=== PATIENT | female | born 1945 | race Caucasian/White ===

== ENCOUNTER 2019-05-10 15:22 | Inpatient (IN) ==
[2019-05-10] MEDS ORDERED: ONDANSETRON 4 MG/2 ML VIAL IV STA (16:07)
[2019-05-10] MEDS ORDERED: fentaNYL 100 MCG/2 ML VIAL IV STA (16:07)
[2019-05-10 16:24] LABS: Basophils # 0.1 10*3/uL (0.0-0.2); Basophils % 0.4 % (0.0-0.8); Hematocrit 34.1 VOL% (35.7-47.0); Hemoglobin 11.3 GM/DL (12.0-16.0); Immature Granulocytes % 0.9 %; Immature Granulocytes Absolute 0.21 #; Lymphocytes # 2.1 10*3/uL (1.4-4.0); Lymphocytes % 9.3 % (21.3-54.2); Mean Corpuscular HGB Conc 33.1 GM/DL (32-36); Mean Corpuscular Volume 98.3 FL (87-102); Mean Platelet Volume 9.4 FL (9.6-12.0); Monocytes % 5.1 % (1.7-12.7); Neutrophils % 84.3 % (38.7-73.9); Platelet Count 197 T/CUMM (130-400); Red Blood Count 3.47 MC/CUMM (3.8-5.5); Red Cell Distribution Width 13.6 % (9.3-17.3); White Blood Count 23.1 T/CUMM (4-12)
[2019-05-10 16:30] LABS: Apearance,Urine CLEAR (Clear); Bacteria,Urine Occasional /HPF (Few); Bilirubin,Urine Negative (Negative); Blood, Urine Small mg/dL (Negative); Glucose,Urine (UA) 150 mg/dL (Negative); Ketones,Urine Negative (Negative); Mucus,Urine Occasional /LPF (Occasional); Nitrite,Urine Negative (Negative); Protein,Urine 30 MG/DL; RBC,Urine 1 /HPF (0-4); Squamous Epithelial Cell,Urine Occasional /HPF (0-10); Urine Color Yellow (Yellow); Urine Specific Gravity 1.013 (1.001-1.035); Urine Urobilinogen < 2.0 EU/DL (0.2-1.0); WBC,Urine 28 /HPF (0-6)
[2019-05-10] MEDS ORDERED: guaiFENesin/DM ER 600-30 MG TABLET PO PRN (16:31)
[2019-05-10] MEDS ORDERED: diphenhydrAMINE CAP 25 MG CAPSULE PO PRN (16:31)
[2019-05-10] MEDS ORDERED: GLUCAGON 1 MG VIAL IM PRN (16:31)
[2019-05-10] MEDS ORDERED: PROMETHAZINE 25 MG/1 ML VIAL IM PRN (16:31)
[2019-05-10] MEDS ORDERED: ONDANSETRON 4 MG/2 ML VIAL IV PRN (16:31)
[2019-05-10] MEDS ORDERED: DEXTROSE 50% 25 GM/50 ML VIAL IV PRN (16:31)
[2019-05-10] MEDS ORDERED: ACETAMINOPHEN 325 MG TABLET PO PRN (16:31)
[2019-05-10 16:35] LABS: Partial Thromboplastin Time 30.5 SECS (20.8-36.0)
[2019-05-10 16:38] LABS: Calcium 8.7 MG/DL (8.5-10.1); Osmolality,Calculated 290.3 MOS/KG (273-304)
[2019-05-10] MEDS ORDERED: AMPICILLIN/SULBACTAM 3,000 MG in SODIUM CHLORIDE 0.9% 100 ML IV STA (16:39)
[2019-05-10 16:43] LABS: Troponin I < 0.015 NG/ML (0.00-0.045)
[2019-05-10 16:48] LABS: Band Neutrophils 2 % (0-10); Lymphocytes 10 % (20-55); Platelet Estimate Normal; Segmented Neutrophils 84 % (50-85); Total Cells Counted 100
[2019-05-10] MEDS ORDERED: MORPHINE 4 MG/1 ML VIAL IV PRN (17:35)
[2019-05-10] MEDS: SODIUM CHLORIDE 0.45% 1,000 ML IV SCH (18:19)
[2019-05-10] MEDS: LEVOFLOXACIN INJ 500 MG in PREMIX 1 EACH IV SCH (20:54)
[2019-05-10] MEDS: INSULIN REGULAR 100 UNIT/ML SUBCUT SCH (20:54)
[2019-05-11 05:20] LABS: Basophils # 0.1 10*3/uL (0.0-0.2); Basophils % 0.3 % (0.0-0.8); Hematocrit 33.3 VOL% (35.7-47.0); Immature Granulocytes % 2.5 %; Immature Granulocytes Absolute 0.58 #; Lymphocytes # 1.4 10*3/uL (1.4-4.0); Mean Corpuscular Volume 99.7 FL (87-102); Mean Platelet Volume 9.7 FL (9.6-12.0); Monocytes % 3.3 % (1.7-12.7); Neutrophils % 87.9 % (38.7-73.9); Platelet Count 179 T/CUMM (130-400); Red Blood Count 3.34 MC/CUMM (3.8-5.5); Red Cell Distribution Width 13.7 % (9.3-17.3); White Blood Count 23.3 T/CUMM (4-12)
[2019-05-11 05:50] LABS: Calcium 9.1 MG/DL (8.5-10.1); Osmolality,Calculated 297.1 MOS/KG (273-304); Risk Ratio 2.77; Thyroid Stimulating Hormone 0.522 uIU/ml (0.358-3.74); Total Protein 7.1 G/DL (6.4-8.3); VLDL CHOLESTEROL 38.2 MG/DL
[2019-05-11 05:52] LABS: Band Neutrophils 5 % (0-10); Lymphocytes 7 % (20-55); Segmented Neutrophils 84 % (50-85); Total Cells Counted 100
[2019-05-11 05:53] LABS: Platelet Estimate Normal
[2019-05-11] MEDS ORDERED: FAMOTIDINE 20 MG TABLET PO ONE (06:00)
[2019-05-11] MEDS ORDERED: ceFAZolin 1,000 MG in SYRINGE 1 EACH IV ONE (06:00)
[2019-05-11] MEDS ORDERED: PROPOFOL 0 MG/0 ML BOTTLE IV ONE (06:02)
[2019-05-11] MEDS ORDERED: MIDAZOLAM 2 MG/2 ML VIAL ONE (06:02)
[2019-05-11] MEDS ORDERED: KETAMINE 500 MG/10 ML VIAL ONE (06:02)
[2019-05-11] MEDS ORDERED: BUPIVACAINE SPINAL 0.75% 2 ML AMP SPINAL ONE (06:02)
[2019-05-11] MEDS ORDERED: PHENYLEPHRINE DRIP 20 MG/250 ML PREMIX IV ONE (06:02)
[2019-05-11] MEDS ORDERED: ALBUTEROL/IPRATROPIUM 3 ML NEB RESP TX PRN (06:29)
[2019-05-11] MEDS ORDERED: BUPIVACAINE 0.5% 50 ML VIAL ONE (07:05)
[2019-05-11] MEDS ORDERED: DEXAMETHASONE 4 MG/1 ML VIAL ONE (07:06)
[2019-05-11] MEDS ORDERED: EPINEPHrine 1 MG/ML VIAL ONE (07:06)
[2019-05-11] MEDS: SODIUM CHLORIDE 0.45% 1,000 ML IV SCH ×2 (07:19→13:25)
[2019-05-11] MEDS: ENALAPRIL 10 MG TABLET PO SCH ×2 (07:20→09:00)
[2019-05-11] MEDS: INSULIN REGULAR 100 UNIT/ML SUBCUT SCH ×4 (07:24→20:49)
[2019-05-11] MEDS: AMPICILLIN/SULBACTAM 3,000 MG in SODIUM CHLORIDE 0.9% 100 ML IV SCH ×3 (07:30→23:52)
[2019-05-11] MEDS ORDERED: MAGNESIUM HYDROXIDE SUSP 30 ML UDCUP PO PRN (09:05)
[2019-05-11] MEDS: FENOFIBRATE 145 MG TABLET PO SCH (11:39)
[2019-05-11] MEDS: ESCITALOPRAM 10 MG TABLET PO SCH (11:39)
[2019-05-11] MEDS: GABAPENTIN 300 MG CAPSULE PO SCH (11:39)
[2019-05-11] MEDS ORDERED: ALBUTEROL 2.5 MG/3 ML NEB RESP TX PRN (12:44)
[2019-05-11] MEDS ORDERED: DEXTROSE 50% 25 GM/50 ML VIAL IV PRN (17:16)
[2019-05-11] MEDS ORDERED: GLUCAGON 1 MG VIAL IM PRN (17:16)
[2019-05-11] MEDS ORDERED: ALOGLIPTIN 25 MG PO SCH (18:00)
[2019-05-11] MEDS: LEVOFLOXACIN INJ 500 MG in PREMIX 1 EACH IV SCH (20:49)
[2019-05-11] MEDS: DOCUSATE SODIUM 100 MG CAPSULE PO SCH (20:49)
[2019-05-12] MEDS ORDERED: FONDAPARINUX 2.5 MG/0.5 ML SYRINGE SUBCUT SCH (03:07)
[2019-05-12] MEDS: SODIUM CHLORIDE 0.45% 1,000 ML IV SCH ×3 (03:49→12:32)
[2019-05-12 05:17] LABS: Basophils % 0.2 % (0.0-0.8); Eosinophils % 0.1 % (0.00-10.9); Hematocrit 30.7 VOL% (35.7-47.0); Hemoglobin 10.1 GM/DL (12.0-16.0); Immature Granulocytes % 1.7 %; Immature Granulocytes Absolute 0.25 #; Lymphocytes # 1.1 10*3/uL (1.4-4.0); Lymphocytes % 7.1 % (21.3-54.2); Mean Corpuscular HGB Conc 32.9 GM/DL (32-36); Mean Corpuscular Volume 99.7 FL (87-102); Mean Platelet Volume 10.2 FL (9.6-12.0); Monocytes % 3.6 % (1.7-12.7); Neutrophils % 87.3 % (38.7-73.9); Platelet Count 153 T/CUMM (130-400); Red Blood Count 3.08 MC/CUMM (3.8-5.5); Red Cell Distribution Width 13.4 % (9.3-17.3); White Blood Count 15.1 T/CUMM (4-12)
[2019-05-12 05:43] LABS: Hypochromasia Slight; Macrocytosis Slight
[2019-05-12 05:44] LABS: Platelet Estimate Adequate
[2019-05-12 05:50] LABS: Albumin 2.4 G/DL (3.4-5.0); Bilirubin,Total 0.5 MG/DL (0.2-1.0); Calcium 9.1 MG/DL (8.5-10.1); Osmolality,Calculated 297.8 MOS/KG (273-304); Total Protein 6.6 G/DL (6.4-8.3)
[2019-05-12] MEDS: AMPICILLIN/SULBACTAM 3,000 MG in SODIUM CHLORIDE 0.9% 100 ML IV SCH (06:15)
[2019-05-12] MEDS: INSULIN REGULAR 100 UNIT/ML SUBCUT SCH ×4 (09:31→20:37)
[2019-05-12] MEDS: ESCITALOPRAM 10 MG TABLET PO SCH (09:32)
[2019-05-12] MEDS: DOCUSATE SODIUM 100 MG CAPSULE PO SCH ×2 (09:32→20:37)
[2019-05-12] MEDS: FENOFIBRATE 145 MG TABLET PO SCH (09:33)
[2019-05-12] MEDS: GABAPENTIN 300 MG CAPSULE PO SCH (09:33)
[2019-05-12] MEDS: ENALAPRIL 10 MG TABLET PO SCH (09:34)
[2019-05-12] MEDS ORDERED: MAGNESIUM SULF RIDER 2 GM in PREMIX 1 EACH IV ONE (11:29)
[2019-05-12] MEDS ORDERED: SODIUM CHLORIDE 0.9% IV SCH (12:00)
[2019-05-12] MEDS ORDERED: NAFCILLIN IV SCH (12:00)
[2019-05-12] MEDS: NAFCILLIN 2,000 MG in SODIUM CHLORIDE 0.9% 100 ML IV SCH ×3 (12:48→23:35)
[2019-05-12] MEDS: LEVOFLOXACIN INJ 500 MG in PREMIX 1 EACH IV SCH (20:37)
[2019-05-13 04:35] LABS: Basophils % 0.3 % (0.0-0.8); Eosinophils # 0.1 10*3/uL (0.0-0.87); Eosinophils % 0.8 % (0.00-10.9); Hematocrit 28.6 VOL% (35.7-47.0); Hemoglobin 9.1 GM/DL (12.0-16.0); Immature Granulocytes % 1.1 %; Immature Granulocytes Absolute 0.14 #; Lymphocytes # 1.8 10*3/uL (1.4-4.0); Lymphocytes % 14.8 % (21.3-54.2); Mean Corpuscular HGB Conc 31.8 GM/DL (32-36); Mean Corpuscular Volume 102.9 FL (87-102); Mean Platelet Volume 9.8 FL (9.6-12.0); Monocytes % 3.6 % (1.7-12.7); Neutrophils % 79.4 % (38.7-73.9); Platelet Count 162 T/CUMM (130-400); Red Blood Count 2.78 MC/CUMM (3.8-5.5); Red Cell Distribution Width 13.8 % (9.3-17.3); White Blood Count 12.4 T/CUMM (4-12)
[2019-05-13 04:54] LABS: Calcium 8.5 MG/DL (8.5-10.1); Osmolality,Calculated 301.6 MOS/KG (273-304)
[2019-05-13] MEDS: NAFCILLIN 2,000 MG in SODIUM CHLORIDE 0.9% 100 ML IV SCH ×3 (05:37→18:01)
[2019-05-13] MEDS: SODIUM CHLORIDE 0.45% 1,000 ML IV SCH ×2 (05:37→08:32)
[2019-05-13] MEDS: INSULIN REGULAR 100 UNIT/ML SUBCUT SCH ×4 (08:55→20:42)
[2019-05-13] MEDS: DOCUSATE SODIUM 100 MG CAPSULE PO SCH ×2 (08:56→20:42)
[2019-05-13] MEDS: GABAPENTIN 300 MG CAPSULE PO SCH (08:57)
[2019-05-13] MEDS: ESCITALOPRAM 10 MG TABLET PO SCH (08:57)
[2019-05-13] MEDS: ENOXAPARIN 30 MG/0.3 ML SYRINGE SUBCUT SCH (08:57)
[2019-05-13] MEDS: FENOFIBRATE 145 MG TABLET PO SCH (08:57)
[2019-05-13] MEDS: ENALAPRIL 10 MG TABLET PO SCH (08:58)
[2019-05-13] MEDS: LEVOFLOXACIN INJ 500 MG in PREMIX 1 EACH IV SCH (20:42)
[2019-05-14] MEDS: NAFCILLIN 2,000 MG in SODIUM CHLORIDE 0.9% 100 ML IV SCH ×3 (00:02→14:17)
[2019-05-14 05:24] LABS: Basophils # 0.1 10*3/uL (0.0-0.2); Basophils % 0.6 % (0.0-0.8); Eosinophils # 0.1 10*3/uL (0.0-0.87); Eosinophils % 1.5 % (0.00-10.9); Hematocrit 30.3 VOL% (35.7-47.0); Hemoglobin 9.8 GM/DL (12.0-16.0); Immature Granulocytes % 1.4 %; Immature Granulocytes Absolute 0.12 #; Lymphocytes # 1.4 10*3/uL (1.4-4.0); Lymphocytes % 15.9 % (21.3-54.2); Mean Corpuscular HGB Conc 32.3 GM/DL (32-36); Mean Corpuscular Volume 100.3 FL (87-102); Mean Platelet Volume 9.9 FL (9.6-12.0); Monocytes % 5.4 % (1.7-12.7); Neutrophils % 75.2 % (38.7-73.9); Platelet Count 195 T/CUMM (130-400); Red Blood Count 3.02 MC/CUMM (3.8-5.5); Red Cell Distribution Width 13.9 % (9.3-17.3); White Blood Count 8.8 T/CUMM (4-12)
[2019-05-14] MEDS: INSULIN REGULAR 100 UNIT/ML SUBCUT SCH ×2 (09:37→11:57)
[2019-05-14] MEDS: FENOFIBRATE 145 MG TABLET PO SCH (09:38)
[2019-05-14] MEDS: ENOXAPARIN 30 MG/0.3 ML SYRINGE SUBCUT SCH (09:38)
[2019-05-14] MEDS: ESCITALOPRAM 10 MG TABLET PO SCH (09:40)
[2019-05-14] MEDS: GABAPENTIN 300 MG CAPSULE PO SCH (09:40)
[2019-05-14] MEDS: ENALAPRIL 10 MG TABLET PO SCH (09:41)
[2019-05-14] MEDS: DOCUSATE SODIUM 100 MG CAPSULE PO SCH (09:41)
[2019-05-14 12:26] VITALS: BP 132/57
[2019-05-15] MEDS ORDERED: LEVOFLOXACIN 500 MG TABLET PO SCH (09:00)
== END 2019-05-14 16:00 | DRG 480 ==
LOC: N.ED 15:22 → N.EDINP 17:03 → N.3E 17:28
PROVIDERS: ADMIT Internal Medicine; ATTEND Internal Medicine